=== PATIENT | female | born 1965 | race Caucasian/White ===

== ENCOUNTER 2022-07-01 08:09 | Emergency (ER) | payer OTHER ==
[~2022-07-01] VITALS: Ht 157.5 cm; Wt 63.0 kg
[2022-07-01 08:16] VITALS: BP 157/72
[2022-07-01] MEDS ORDERED: LORAZEPAM 1MG TABLET PO ONE (08:45)
== END 2022-07-01 13:50 | disposition home or self-care (01) ==
LOC: ER 08:24
DX: F41.9 Anxiety disorder, unspecified (principal); F43.0 Acute stress reaction
CPT/HCPCS: 99283

== ENCOUNTER 2022-08-15 15:50 | Emergency (ER) | payer OTHER ==
[~2022-08-15] VITALS: Ht 167.6 cm; Wt 73.0 kg
[2022-08-15] MEDS ORDERED: MAGNESIUM/ALUMINUM HYDROXIDE/SIMETHICONE 30ML UDC PO STA (15:55)
[2022-08-15] MEDS ORDERED: VISCOUS LIDOCAINE 2% 15 ML UDC PO STA (15:55)
[2022-08-15 15:59] VITALS: BP 144/79
[2022-08-15] MEDS ORDERED: FAMOTIDINE 20MG TABLET PO ONE (16:00)
[2022-08-15 16:45] LABS: BASOPHILS % 0.5 % (0.0-2.0); EOSINOPHILS % 0.5 % (0.0-5.0); HEMATOCRIT. 38.5 % (36.0-48.0); LYMPHOCYTES % 13.1 % (20.0-50.0); MEAN CORPUSCULAR HEMOGLOBIN 29.2 pg (28.0-32.0); MEAN CORPUSCULAR VOLUME 86.7 fL (81.0-99.0); MEAN PLATELET VOLUME 8.5 fl (7.4-10.4); MONOCYTES % 3.9 % (2.0-8.0); PLATELET 262 x1000/uL (130-400); RED BLOOD CELL COUNT 4.45 mill/uL (4.2-5.4); RED CELL DISTRIBUTION WIDTH 14.4 % (11.6-14.6)
[2022-08-15 16:46] LABS: CHLORIDE 110 mEq/L (98-107)
[2022-08-15 16:48] LABS: HCG SCREEN NEGATIVE
[2022-08-15 16:52] LABS: ETHANOL BLOOD < 10 mg/dL (-10)
[2022-08-15] MEDS: ONDANSETRON 4MG ODT PO NR (19:00)
[2022-08-15] MEDS ORDERED: FAMOTIDINE 20MG TABLET PO NR (19:00)
[2022-08-15] MEDS ORDERED: LORAZEPAM 0.5MG TABLET PO ONE (19:00)
[2022-08-15] MEDS ORDERED: ONDANSETRON 4MG ODT PO ONE (19:00)
[2022-08-15] MEDS: MAGNESIUM/ALUMINUM HYDROXIDE/SIMETHICONE 30ML UDC PO NR (19:00)
[2022-08-15 20:39] LABS: CLARITY URINE CLEAR (CLEAR); COLOR URINE YELLOW (YELLOW); KETONES URINE TRACE (NEGATIVE); LEUKOCYTE ESTERASE URINE 1+ (NEGATIVE); NITRITE URINE NEGATIVE (NEGATIVE); OCCULT BLOOD URINE NEGATIVE (NEGATIVE); PROTEIN URINE TRACE (NEGATIVE); UROBILINOGEN URINE 0.2 E.U./dL (0.2-1.0)
[2022-08-15 20:50] LABS: *AMPHETAMINES SCREEN URINE NEGATIVE (NEGATIVE); *BARBITURATES SCREEN URINE NEGATIVE (NEGATIVE); *BENZODIAZEPINES SCREEN URINE NEGATIVE (NEGATIVE); *COCAINE SCREEN URINE NEGATIVE (NEGATIVE); CANNABINOID URINE SCREEN NEGATIVE (NEGATIVE); METHADONE URINE SCREEN NEGATIVE (NEGATIVE); OPIATES URINE SCREEN NEGATIVE (NEGATIVE); PHENCYCLIDINE URINE SCREEN NEGATIVE (NEGATIVE)
== END 2022-08-15 21:00 | disposition home or self-care (01) ==
LOC: ER 15:50
DX: F43.0 Acute stress reaction (principal); Z98.890 Other specified postprocedural states
CPT/HCPCS: 36415; 80053; 80305; 80320; 81003; 81025; 83690; 84703; 85025; 93005; 99284; Q0162; G0480

== ENCOUNTER 2022-08-24 19:09 | Emergency (ER) | payer OTHER ==
[~2022-08-24] VITALS: Ht 162.6 cm; Wt 63.0 kg
[2022-08-24 19:20] VITALS: BP 158/92; PULSE 98; RESP 18; TEMP 98.4; O2SAT 98
== END 2022-08-24 20:15 | disposition left against medical advice (07) ==
LOC: ER 19:09
DX: Z53.21 Procedure and treatment not carried out due to patient leaving prior to being seen by health care provider (principal)
CPT/HCPCS: 99281

== ENCOUNTER 2023-05-29 19:03 | Emergency (ER) | payer SELFPAY ==
[~2023-05-29] VITALS: Ht 157.5 cm; Wt 70.0 kg
[2023-05-29 19:33] VITALS: O2SAT 99
[2023-05-29] MEDS ORDERED: IBUP-2028 MT (22:08)
[2023-05-29] MEDS ORDERED: TOPUD PO (22:08)
[2023-05-29] MEDS ORDERED: AMOX1TAB16 MT (22:08)
[2023-05-29] MEDS: ONDANSETRON 4MG ODT PO ONE (22:35)
[2023-05-29] MEDS: HYDROCODONE/ACETAMINOPHEN 5/325MG TABLET PO ONE (22:35)
[2023-05-29] MEDS: MAGNESIUM/ALUMINUM HYDROXIDE/SIMETHICONE 30ML UDC PO ONE (22:35)
[2023-05-29] MEDS: AMOXICILLIN/POTASSIUM CLAVULANATE 875/125MG TAB PO ONE (22:36)
[2023-05-29 22:38] VITALS: BP 153/107; PULSE 75; RESP 20; TEMP 98.5
[2023-05-30] MEDS ORDERED: NITR-87 MT (10:35)
[2023-05-30] MEDS ORDERED: ONDA4TAB50 MT (10:35)
== END 2023-05-29 22:40 | disposition home or self-care (01) ==
LOC: ER 19:03
DX: K02.9 Dental caries, unspecified (principal); F41.9 Anxiety disorder, unspecified; F32.A Depression, unspecified; K80.20 Calculus of gallbladder without cholecystitis without obstruction; Z98.890 Other specified postprocedural states
CPT/HCPCS: 99284; Q0162

== ENCOUNTER 2023-05-30 01:00 | Emergency (ER) | payer SELFPAY ==
[~2023-05-30] VITALS: Ht 157.5 cm; Wt 69.0 kg
[~2023-05-30 01:00] MED LIST: AMOX1TAB16 MT; IBUP-2028 MT; TOPUD PO
[2023-05-30 01:07] VITALS: O2SAT 99
[2023-05-30 02:38] LABS: EOSINOPHILS % 2.1 % (0.0-5.0); HEMATOCRIT. 40.6 % (36.0-48.0); HEMOGLOBIN. 13.6 g/dL (12.0-16.0); LYMPHOCYTES % 32.1 % (20.0-50.0); MEAN CORPUSCULAR HEMOGLOBIN 28.4 pg (28.0-32.0); MEAN CORPUSCULAR HGB CONC 33.5 g/dL (31.0-37.0); MEAN CORPUSCULAR VOLUME 84.9 fL (81.0-99.0); MEAN PLATELET VOLUME 7.7 fl (7.4-10.4); MONOCYTES % 5.9 % (2.0-8.0); NEUTROPHILS % 58.9 % (40.0-76.0); PLATELET 273 x1000/uL (130-400); RED BLOOD CELL COUNT 4.78 mill/uL (4.2-5.4); RED CELL DISTRIBUTION WIDTH 13.7 % (11.6-14.6); WHITE BLOOD COUNT 6.5 x1000/uL (4.5-11.0)
[2023-05-30 02:54] LABS: ALANINE AMINOTRANSFERASE 25 IU/L (10-49); ASPARTATE AMINOTRANSFERASE 21 IU/L (<34); BILIRUBIN TOTAL 0.6 mg/dL (0.1-1.0); CALCIUM 9.5 mg/dL (8.7-10.4); CARBON DIOXIDE 24 mEq/L (21-32); CHLORIDE 105 mEq/L (98-107); CREATININE 0.7 mg/dL (0.6-1.0); GLUCOSE 112 mg/dL (70-105); POTASSIUM 3.4 mEq/L (3.5-5.1); PROTEIN TOTAL 7.6 g/dL (6.0-8.3); SODIUM 137 mEq/L (136-145); UREA NITROGEN BLOOD 13 mg/dL (9-23)
[2023-05-30] MEDS: METOCLOPRAMIDE HCL 10MG/2ML VIAL IM ONE (08:51)
[2023-05-30] MEDS: MAGNESIUM/ALUMINUM HYDROXIDE/SIMETHICONE 30ML UDC PO ONE (08:51)
[2023-05-30] MEDS: FAMOTIDINE 20MG TABLET PO SCH (08:52)
[2023-05-30 09:43] LABS: CLARITY URINE CLEAR (CLEAR); COLOR URINE YELLOW (YELLOW); GLUCOSE URINE NEGATIVE (NEGATIVE); KETONES URINE NEGATIVE (NEGATIVE); LEUKOCYTE ESTERASE URINE NEGATIVE (NEGATIVE); NITRITE URINE NEGATIVE (NEGATIVE); OCCULT BLOOD URINE 1+ (NEGATIVE); PROTEIN URINE TRACE (NEGATIVE); SPECIFIC GRAVITY URINE 1.026 (1.005-1.030); UROBILINOGEN URINE 0.2 E.U./dL (0.2-1.0)
[2023-05-30 10:15] LABS: MUCUS URINE 2+ /lpf (< = 2+); SQUAMOUS EPITHELIAL CELL URINE 2+ /lpf (RARE/1+)
[2023-05-30 10:17] LABS: RBC URINE 15-25 /hpf (0-2)
[2023-05-30 10:18] LABS: BACTERIA URINE TRACE
[2023-05-30] MEDS ORDERED: NITR-87 MT (10:35)
[2023-05-30] MEDS ORDERED: ONDA4TAB50 MT (10:35)
[2023-05-30] MEDS ORDERED: CEPHALEXIN 250MG CAPSULE PO ONE (10:45)
[2023-05-30 10:48] VITALS: BP 132/82; PULSE 84; RESP 16; TEMP 98.6
== END 2023-05-30 10:49 | disposition home or self-care (01) ==
LOC: ER 01:00
DX: R10.84 Generalized abdominal pain (principal); N39.0 Urinary tract infection, site not specified; F41.9 Anxiety disorder, unspecified; F32.9 Major depressive disorder, single episode, unspecified; Z87.19 Personal history of other diseases of the digestive system; Z79.899 Other long term (current) drug therapy
CPT/HCPCS: 80053; 81003; 81025; 85025; 36415; 74176; 96372; 99285; J2765; Z7610